=== PATIENT | male | born 1950 | race African-American/Black ===

== ENCOUNTER 2021-04-14 18:58 | Inpatient (IN) | payer OTHER ==
[2021-04-15] MEDS ORDERED: BISMUTH SUBSALICYLATE 524 MG/30 ML PO PRN (01:01)
[2021-04-15] MEDS ORDERED: MAGNESIUM HYDROX 2400MG/30ML ORAL SUSPENSION 30 ML CUP PO PRN (01:01)
[2021-04-15] MEDS ORDERED: ONDANSETRON *ODT* 4 MG TABLET SL PRN (01:01)
[2021-04-15] MEDS ORDERED: IBUPROFEN 400 MG TABLET (FP) PO PRN (01:01)
[2021-04-15] MEDS ORDERED: MAGNESIUM CITRATE 300 ML BOTTLE PO PRN (01:01)
[2021-04-15] MEDS ORDERED: MAG HYDROX/AL HYDROX/SIMETH 30 ML UNIT-DOSE CUP PO PRN (01:01)
[2021-04-15] MEDS ORDERED: METHOCARBAMOL 500 MG TABLET PO PRN (01:01)
[2021-04-15] MEDS ORDERED: ACETAMINOPHEN 325 MG TABLET (FP) PO PRN ×2 (01:01)
[2021-04-15] MEDS ORDERED: MENTHOL/PHENOL 1 EACH UD MM PRN (01:01)
[2021-04-15] MEDS ORDERED: diazePAM 5 MG TABLET PO PRN (09:18)
[2021-04-15 09:43] VITALS: BMI 24.7
[2021-04-15] MEDS ORDERED: LISINOPRIL 20 MG PO SCH (10:00)
[2021-04-15] MEDS: levETIRAcetam 500 MG TABLET (FP) PO SCH ×2 (10:46→22:17)
[2021-04-15] MEDS: LABETALOL HCL 200 MG TABLET (FP) PO SCH ×2 (10:47→23:30)
[2021-04-15] MEDS: PRENATAL VITAMINS W/ FOLIC ACID TABLET (FP) PO SCH (10:47)
[2021-04-15] MEDS: diazePAM 5 MG TABLET PO SCH ×3 (10:48→22:17)
[2021-04-15] MEDS ORDERED: LISINOPRIL 20 MG TABLET PO SCH (13:42)
[2021-04-15 16:59] LABS: ALBUMIN 2.9 g/dl (3.4-5.0); BLOOD UREA NITROGEN 11.1 mg/dL (7-18); CALCIUM 8.7 mg/dL (8.5-10.1)
[2021-04-15 17:03] LABS: CREATININE 0.7 mg/dL (0.55-1.3)
[2021-04-15 17:04] LABS: BILIRUBIN,TOTAL 1.1 mg/dL (0.2-1); TOT PROT 7.7 g/dl (6.4-8.2)
[2021-04-15 17:13] LABS: HEMATOCRIT 35.7 % (35.4-49); HEMOGLOBIN 12.5 GM/dL (11.7-16.9); MCH 35.8 pg (25.7-33.7); MCHC 34.9 g/dl (32.0-35.9); MEAN CELL VOLUME 102.6 fl (80-96); PLATELET COUNT 212 10^3/uL (134-434); RBC 3.48 M/mm3 (4.00-5.60); RDW 14.3 % (11.9-15.9); WHITE BLOOD COUNT 5.9 K/mm3 (4.0-10.0)
[2021-04-15] MEDS: THIAMINE HCL 100 MG TABLET (FP) PO SCH (22:17)
[2021-04-15] MEDS: MELATONIN 5 MG TABLETS PO SCH (22:17)
[2021-04-15] MEDS: ATORVASTATIN CA 10 MG TABLET (FP) PO SCH (22:17)
[2021-04-16] MEDS: diazePAM 5 MG TABLET PO SCH ×4 (05:17→22:30)
[2021-04-16] MEDS: LISINOPRIL 20 MG TABLET PO SCH (10:09)
[2021-04-16] MEDS: LABETALOL HCL 200 MG TABLET (FP) PO SCH ×2 (10:09→22:30)
[2021-04-16] MEDS: PRENATAL VITAMINS W/ FOLIC ACID TABLET (FP) PO SCH (10:09)
[2021-04-16] MEDS: levETIRAcetam 500 MG TABLET (FP) PO SCH ×2 (10:10→22:30)
[2021-04-16] MEDS ORDERED: POTASSIUM CHLORIDE TABS 20 MEQ TABLET.ER (FP) PO ONE (11:06)
[2021-04-16] MEDS ORDERED: LOPERAMIDE HCL 2 MG CAPSULE PO ONE (17:56)
[2021-04-16] MEDS: THIAMINE HCL 100 MG TABLET (FP) PO SCH (22:30)
[2021-04-16] MEDS: BACITRACIN 0.9 GM PACKET TP SCH (22:30)
[2021-04-16] MEDS: MELATONIN 5 MG TABLETS PO SCH (22:30)
[2021-04-16] MEDS: ATORVASTATIN CA 10 MG TABLET (FP) PO SCH (22:30)
[2021-04-17] MEDS: diazePAM 5 MG TABLET PO SCH ×3 (06:23→22:14)
[2021-04-17] MEDS: PRENATAL VITAMINS W/ FOLIC ACID TABLET (FP) PO SCH (10:16)
[2021-04-17] MEDS: LISINOPRIL 20 MG TABLET PO SCH (10:16)
[2021-04-17] MEDS: LABETALOL HCL 200 MG TABLET (FP) PO SCH ×2 (10:17→22:14)
[2021-04-17] MEDS: levETIRAcetam 500 MG TABLET (FP) PO SCH ×2 (10:17→22:13)
[2021-04-17] MEDS: BACITRACIN 0.9 GM PACKET TP SCH ×2 (10:50→22:13)
[2021-04-17] MEDS ORDERED: LOPERAMIDE HCL 2 MG CAPSULE PO PRN (19:11)
[2021-04-17] MEDS: ATORVASTATIN CA 10 MG TABLET (FP) PO SCH (22:13)
[2021-04-17] MEDS: THIAMINE HCL 100 MG TABLET (FP) PO SCH (22:14)
[2021-04-17] MEDS: MELATONIN 5 MG TABLETS PO SCH (22:14)
[2021-04-18] MEDS: diazePAM 5 MG TABLET PO SCH ×2 (05:44→17:36)
[2021-04-18] MEDS: levETIRAcetam 500 MG TABLET (FP) PO SCH ×2 (10:42→22:14)
[2021-04-18] MEDS: LISINOPRIL 20 MG TABLET PO SCH (10:42)
[2021-04-18] MEDS: LABETALOL HCL 200 MG TABLET (FP) PO SCH ×2 (10:43→22:14)
[2021-04-18] MEDS: BACITRACIN 0.9 GM PACKET TP SCH ×2 (10:43→22:13)
[2021-04-18] MEDS: PRENATAL VITAMINS W/ FOLIC ACID TABLET (FP) PO SCH (10:43)
[2021-04-18] MEDS: MELATONIN 5 MG TABLETS PO SCH (22:13)
[2021-04-18] MEDS: ATORVASTATIN CA 10 MG TABLET (FP) PO SCH (22:14)
[2021-04-18] MEDS: THIAMINE HCL 100 MG TABLET (FP) PO SCH (22:14)
[2021-04-19] MEDS ORDERED: diazePAM 5 MG TABLET PO ONE (06:00)
[2021-04-19 09:29] VITALS: BP 121/75; PULSE 77; TEMP 96.6
[2021-04-19] MEDS: BACITRACIN 0.9 GM PACKET TP SCH (10:32)
[2021-04-19] MEDS: LISINOPRIL 20 MG TABLET PO SCH (10:32)
[2021-04-19] MEDS: levETIRAcetam 500 MG TABLET (FP) PO SCH (10:33)
[2021-04-19] MEDS: PRENATAL VITAMINS W/ FOLIC ACID TABLET (FP) PO SCH (10:33)
[2021-04-19] MEDS: LABETALOL HCL 200 MG TABLET (FP) PO SCH (10:33)
== END 2021-04-19 10:57 | disposition home or self-care (01) | DRG 897 ==
LOC: YASAS 18:58 → Y3N 04-15 11:18
PROVIDERS: ADMIT Allergy & Immunology; ATTEND Allergy & Immunology
PROC: HZ2ZZZZ Detoxification Services for Substance Abuse Treatment (ICD-10-PCS; principal; 2021-04-15)
DX: F10.230 Alcohol dependence with withdrawal, uncomplicated (principal); E78.5 Hyperlipidemia, unspecified; E11.9 Type 2 diabetes mellitus without complications; I10 Essential (primary) hypertension; K70.30 Alcoholic cirrhosis of liver without ascites; N40.0 Benign prostatic hyperplasia without lower urinary tract symptoms; R74.8 Abnormal levels of other serum enzymes; Z86.69 Personal history of other diseases of the nervous system and sense organs; Z87.19 Personal history of other diseases of the digestive system
CPT/HCPCS: 36415; 71046-TC-FY; 80053; 82962; 85027; 86780; 93005; 93010; C9803; U0003; U0005

== ENCOUNTER 2021-04-23 15:53 | Inpatient (IN) | payer OTHER ==
[2021-04-23] MEDS ORDERED: guaiFENesin 200 MG/10 ML 10 ML UNIT-DOSE CUPS PO PRN (22:25)
[2021-04-23] MEDS ORDERED: MAGNESIUM CITRATE 300 ML BOTTLE PO PRN (22:25)
[2021-04-23] MEDS ORDERED: ACETAMINOPHEN 325 MG TABLET (FP) PO PRN (22:25)
[2021-04-23] MEDS ORDERED: P-EPHED 60MG/TRIPROLIDI 2.5MG TABLET PO PRN (22:25)
[2021-04-23] MEDS ORDERED: MAGNESIUM HYDROX 2400MG/30ML ORAL SUSPENSION 30 ML CUP PO PRN (22:25)
[2021-04-23] MEDS ORDERED: LOPERAMIDE HCL 2 MG CAPSULE PO PRN (22:25)
[2021-04-23] MEDS ORDERED: MAG HYDROX/AL HYDROX/SIMETH 30 ML UNIT-DOSE CUP PO PRN (22:25)
[2021-04-23 22:52] VITALS: BMI 25.8
[2021-04-24] MEDS: MELATONIN 5 MG TABLETS PO SCH ×2 (00:32→21:29)
[2021-04-24] MEDS: IBUPROFEN 400 MG TABLET (FP) PO PRN (00:33)
[2021-04-24] MEDS: LABETALOL HCL 200 MG TABLET (FP) PO SCH ×3 (00:33→21:29)
[2021-04-24] MEDS: PRENATAL VITAMINS W/ FOLIC ACID TABLET (FP) PO SCH (09:59)
[2021-04-24 12:21] LABS: ALBUMIN 2.8 g/dl (3.4-5.0); CALCIUM 9.3 mg/dL (8.5-10.1)
[2021-04-24 12:23] LABS: HEMATOCRIT 34.3 % (35.4-49); HEMOGLOBIN 11.9 GM/dL (11.7-16.9); MCHC 34.6 g/dl (32.0-35.9); MEAN CELL VOLUME 101.2 fl (80-96); MEAN PLT VOLUME 9.2 fl (7.5-11.1); PLATELET COUNT 211 10^3/uL (134-434); RBC 3.39 M/mm3 (4.00-5.60); RDW 13.9 % (11.9-15.9); TOT PROT 7.8 g/dl (6.4-8.2); WHITE BLOOD COUNT 5.8 K/mm3 (4.0-10.0)
[2021-04-24 12:24] LABS: CREATININE 0.7 mg/dL (0.55-1.3)
[2021-04-24] MEDS: ATORVASTATIN CA 10 MG TABLET (FP) PO SCH (21:29)
[2021-04-24] MEDS: THIAMINE HCL 100 MG TABLET (FP) PO SCH (21:29)
[2021-04-24 23:46] LABS: URINE APPEARANCE CLEAR; URINE BILIRUBIN NEGATIVE (NEGATIVE); URINE COLOR YELLOW; URINE GLUCOSE (UA) NEGATIVE (NEGATIVE); URINE KETONE NEGATIVE (NEGATIVE)
[2021-04-24 23:47] LABS: URINE LEUK ESTERASE NEGATIVE (NEGATIVE); URINE NITRITE NEGATIVE (NEGATIVE); URINE PROTEIN NEGATIVE (NEGATIVE); URINE UROBILINOGEN 0.2 mg/dL (0.2-1.0)
[2021-04-25 02:26] LABS: URINE RBC 9 /uL (0-23.9)
[2021-04-25] MEDS: LABETALOL HCL 200 MG TABLET (FP) PO SCH ×2 (10:09→21:15)
[2021-04-25] MEDS: PRENATAL VITAMINS W/ FOLIC ACID TABLET (FP) PO SCH (10:09)
[2021-04-25] MEDS: IBUPROFEN 400 MG TABLET (FP) PO PRN (10:09)
[2021-04-25] MEDS: THIAMINE HCL 100 MG TABLET (FP) PO SCH (21:15)
[2021-04-25] MEDS: MELATONIN 5 MG TABLETS PO SCH (21:15)
[2021-04-25] MEDS: ATORVASTATIN CA 10 MG TABLET (FP) PO SCH (21:15)
[2021-04-26] MEDS ORDERED: PT OWN MED DRAWER 7, Y5N ONE (08:26)
[2021-04-26] MEDS: PRENATAL VITAMINS W/ FOLIC ACID TABLET (FP) PO SCH (10:42)
[2021-04-26] MEDS: LABETALOL HCL 200 MG TABLET (FP) PO SCH (10:44)
[2021-04-26] MEDS: THIAMINE HCL 100 MG TABLET (FP) PO SCH (21:33)
[2021-04-26] MEDS: MELATONIN 5 MG TABLETS PO SCH (21:33)
[2021-04-26] MEDS: LABETALOL HCL 100 MG TABLET (FP) PO SCH (21:34)
[2021-04-26] MEDS: ATORVASTATIN CA 10 MG TABLET (FP) PO SCH (21:34)
[2021-04-27] MEDS: PRENATAL VITAMINS W/ FOLIC ACID TABLET (FP) PO SCH (10:06)
[2021-04-27] MEDS: LABETALOL HCL 100 MG TABLET (FP) PO SCH ×2 (10:06→21:11)
[2021-04-27] MEDS: ATORVASTATIN CA 10 MG TABLET (FP) PO SCH (21:10)
[2021-04-27] MEDS: THIAMINE HCL 100 MG TABLET (FP) PO SCH (21:10)
[2021-04-27] MEDS: MELATONIN 5 MG TABLETS PO SCH (21:11)
[2021-04-28] MEDS: PRENATAL VITAMINS W/ FOLIC ACID TABLET (FP) PO SCH (10:10)
[2021-04-28] MEDS: LABETALOL HCL 100 MG TABLET (FP) PO SCH ×2 (10:10→21:33)
[2021-04-28] MEDS: ATORVASTATIN CA 10 MG TABLET (FP) PO SCH (21:33)
[2021-04-28] MEDS: MELATONIN 5 MG TABLETS PO SCH (21:33)
[2021-04-28] MEDS: THIAMINE HCL 100 MG TABLET (FP) PO SCH (21:33)
[2021-04-29] MEDS: PRENATAL VITAMINS W/ FOLIC ACID TABLET (FP) PO SCH (09:41)
[2021-04-29] MEDS: LABETALOL HCL 100 MG TABLET (FP) PO SCH ×2 (09:41→21:14)
[2021-04-29] MEDS: MELATONIN 5 MG TABLETS PO SCH (21:13)
[2021-04-29] MEDS: ATORVASTATIN CA 10 MG TABLET (FP) PO SCH (21:14)
[2021-04-29] MEDS: THIAMINE HCL 100 MG TABLET (FP) PO SCH (21:14)
[2021-04-30] MEDS: PRENATAL VITAMINS W/ FOLIC ACID TABLET (FP) PO SCH (10:16)
[2021-04-30] MEDS: LABETALOL HCL 100 MG TABLET (FP) PO SCH ×2 (10:16→21:37)
[2021-04-30] MEDS: MELATONIN 5 MG TABLETS PO SCH (21:37)
[2021-04-30] MEDS: THIAMINE HCL 100 MG TABLET (FP) PO SCH (21:37)
[2021-04-30] MEDS: ATORVASTATIN CA 10 MG TABLET (FP) PO SCH (21:38)
[2021-05-01] MEDS: LABETALOL HCL 100 MG TABLET (FP) PO SCH (09:54)
[2021-05-01] MEDS: PRENATAL VITAMINS W/ FOLIC ACID TABLET (FP) PO SCH (09:54)
[2021-05-01] MEDS: THIAMINE HCL 100 MG TABLET (FP) PO SCH (21:03)
[2021-05-01] MEDS: MELATONIN 5 MG TABLETS PO SCH (21:03)
[2021-05-01] MEDS: LABETALOL HCL 200 MG TABLET (FP) PO SCH (21:03)
[2021-05-01] MEDS: ATORVASTATIN CA 10 MG TABLET (FP) PO SCH (21:03)
[2021-05-02 08:25] VITALS: BP 148/80; PULSE 74; TEMP 98.4
[2021-05-02] MEDS: PRENATAL VITAMINS W/ FOLIC ACID TABLET (FP) PO SCH (09:22)
[2021-05-02] MEDS: LABETALOL HCL 200 MG TABLET (FP) PO SCH (09:22)
== END 2021-05-02 09:30 | disposition home or self-care (01) | DRG 895 ==
LOC: YASAS 15:53 → Y3W 22:19
PROVIDERS: ADMIT Allergy & Immunology; ATTEND Allergy & Immunology
PROC: HZ42ZZZ Group Counseling for Substance Abuse Treatment, Cognitive-Behavioral (ICD-10-PCS; principal; 2021-04-23)
DX: F10.20 Alcohol dependence, uncomplicated (principal); E78.5 Hyperlipidemia, unspecified; I10 Essential (primary) hypertension; K74.60 Unspecified cirrhosis of liver; N40.0 Benign prostatic hyperplasia without lower urinary tract symptoms; Z86.69 Personal history of other diseases of the nervous system and sense organs; Z87.19 Personal history of other diseases of the digestive system
CPT/HCPCS: 36415; 80053; 81003; 85027; 86780; C9803; U0003; U0005